=== PATIENT | female | born 1995 | race African-American/Black ===

== ENCOUNTER 2018-09-17 11:10 | Emergency (ER) | payer MEDICAID ==
[~2018-09-17] VITALS: Ht 154.9 cm; Wt 50.0 kg
[2018-09-17] MEDS ORDERED: IBUPROFEN 600MG TABLET PO ONE (12:15)
[2018-09-17 13:45] VITALS: BP 112/62
== END 2018-09-17 13:54 | disposition home or self-care (01) ==
LOC: ER 11:10
DX: S93.401A Sprain of unspecified ligament of right ankle, initial encounter (principal); X50.1XXA Overexertion from prolonged static or awkward postures, initial encounter; Y93.89 Activity, other specified; Y92.89 Other specified places as the place of occurrence of the external cause
CPT/HCPCS: 73610; 81025; 99284